=== PATIENT | female | born 1955 | race African-American/Black ===

== ENCOUNTER 2018-08-30 16:42 | Inpatient (IN) | payer MEDICARE, MEDICAID ==
[~2018-08-30] VITALS: Ht 157.5 cm; Wt 110.2 kg
[2018-08-30] MEDS ORDERED: SODIUM CHLORIDE 0.9% 500 ML IV ONE (17:25)
[2018-08-30 18:52] LABS: BASOPHILS % 0.9 % (0.0-2.0); EOSINOPHILS % 1.9 % (0.0-5.0); HEMATOCRIT. 38.8 % (36.0-48.0); HEMOGLOBIN. 13.4 g/dL (12.0-16.0); LYMPHOCYTES % 39.1 % (20.0-50.0); MEAN CORPUSCULAR HEMOGLOBIN 30.4 pg (28.0-32.0); MEAN CORPUSCULAR VOLUME 88.3 fL (81.0-99.0); MEAN PLATELET VOLUME 6.4 fl (7.4-10.4); MONOCYTES % 8.5 % (2.0-8.0); NEUTROPHILS % 49.6 % (40.0-76.0); PLATELET 463 x1000/uL (130-400); RED CELL DISTRIBUTION WIDTH 12.5 % (11.6-14.6)
[2018-08-30 18:54] LABS: CHLORIDE 87 mEq/L (98-107)
[2018-08-30 18:57] LABS: PROTHROMBIN TIME 10.5 sec (9.1-11.1)
[2018-08-30 20:16] LABS: CLARITY URINE CLOUDY (CLEAR); COLOR URINE YELLOW (YELLOW); KETONES URINE NEGATIVE (NEGATIVE); LEUKOCYTE ESTERASE URINE 3+ (NEGATIVE); NITRITE URINE POSITIVE (NEGATIVE); OCCULT BLOOD URINE TRACE (NEGATIVE); PH URINE 6.5 (4.5-8.0); PROTEIN URINE NEGATIVE (NEGATIVE); SPECIFIC GRAVITY URINE 1.011 (1.005-1.030)
[2018-08-31] MEDS ORDERED: SODIUM CHLORIDE 3% 250 ML IV SCH (02:00)
[2018-08-31] MEDS ORDERED: DOCUSATE SODIUM 250MG CAPSULE PO SCH (09:30)
[2018-08-31] MEDS ORDERED: LACTULOSE 20G/30ML UDC PO SCH (09:30)
[2018-08-31 09:36] VITALS: BP 154/77
[2018-08-31 10:54] LABS: BASOPHILS % 0.4 % (0.0-2.0); EOSINOPHILS % 0.5 % (0.0-5.0); HEMATOCRIT. 37.4 % (36.0-48.0); LYMPHOCYTES % 29.1 % (20.0-50.0); MEAN CORPUSCULAR HEMOGLOBIN 30.9 pg (28.0-32.0); MEAN CORPUSCULAR VOLUME 88.5 fL (81.0-99.0); MONOCYTES % 5.8 % (2.0-8.0); NEUTROPHILS % 64.2 % (40.0-76.0); PLATELET 459 x1000/uL (130-400); RED BLOOD CELL COUNT 4.23 mill/uL (4.2-5.4); RED CELL DISTRIBUTION WIDTH 12.7 % (11.6-14.6)
[2018-08-31] MEDS: SPIRONOLACTONE 25MG TABLET PO SCH (11:42)
[2018-08-31] MEDS ORDERED: ALD50 MT (13:00)
[2018-08-31] MEDS ORDERED: ACET-2178 MT (13:18)
[2018-08-31] MEDS ORDERED: CHOL100046 MT (13:18)
[2018-08-31] MEDS ORDERED: XALAO EACHEYE (13:18)
[2018-08-31] MEDS ORDERED: AMLO5TAB88 MT (13:18)
[2018-08-31] MEDS ORDERED: LEVE750T4 MT (13:18)
[2018-08-31] MEDS ORDERED: DOCU-138 MT (13:18)
[2018-08-31] MEDS ORDERED: BACL-141 MT (13:18)
[2018-08-31] MEDS ORDERED: TIMO1DRO2 EACHEYE (13:18)
[2018-08-31] MEDS ORDERED: BRIM5DRO6 EACHEYE (13:18)
[2018-08-31] MEDS ORDERED: SIMV40TA5 MT (13:18)
[2018-08-31] MEDS ORDERED: CLON0.1T MT (13:18)
[2018-08-31] MEDS ORDERED: IBUP-1649 PO (13:18)
[2018-08-31] MEDS ORDERED: MOM MT (13:18)
[2018-08-31] MEDS ORDERED: CLONIDINE 0.1MG TABLET PO PRN (15:15)
[2018-08-31] MEDS: LEVOFLOXACIN 500MG PREMIX 100 ML IV SCH (15:58)
[2018-08-31] MEDS ORDERED: NA PHOS,M-B/NA PHOS,DI-BA ENEMA 118ML PR NR (16:20)
[2018-08-31] MEDS ORDERED: LACTULOSE 20G/30ML UDC PO NR (16:20)
[2018-08-31] MEDS: DOCUSATE SODIUM 100MG CAPSULE PO SCH (18:18)
[2018-08-31] MEDS: BRIMONIDINE 0.2% OPHTH DROPS 5ML BOTHEYE SCH (18:19)
[2018-08-31] MEDS: LACTULOSE 20G/30ML UDC PO NR ×2 (19:30→21:04)
[2018-08-31 20:00] VITALS: BP 155/86
[2018-08-31] MEDS ORDERED: LEVETIRACETAM 500MG/5ML CUP PO SCH (21:00)
[2018-08-31] MEDS: AMLODIPINE 5MG TABLET PO SCH (21:04)
[2018-08-31] MEDS: ATORVASTATIN CALCIUM 20MG TABLET PO SCH (21:04)
[2018-08-31] MEDS: LATANOPROST 0.005% OPHTH DROPS 2.5ML BOTHEYE SCH (21:54)
[2018-09-01] VITALS: BP 162/82
[2018-09-01 04:00] VITALS: BP 152/73
[2018-09-01 07:48] LABS: BASOPHILS % 0.6 % (0.0-2.0); EOSINOPHILS % 1.6 % (0.0-5.0); HEMATOCRIT. 35.4 % (36.0-48.0); HEMOGLOBIN. 12.4 g/dL (12.0-16.0); LYMPHOCYTES % 36.6 % (20.0-50.0); MEAN CORPUSCULAR HEMOGLOBIN 30.6 pg (28.0-32.0); MEAN CORPUSCULAR VOLUME 87.6 fL (81.0-99.0); MEAN PLATELET VOLUME 6.6 fl (7.4-10.4); MONOCYTES % 7.3 % (2.0-8.0); NEUTROPHILS % 53.9 % (40.0-76.0); PLATELET 464 x1000/uL (130-400); RED BLOOD CELL COUNT 4.04 mill/uL (4.2-5.4); RED CELL DISTRIBUTION WIDTH 12.2 % (11.6-14.6)
[2018-09-01 08:00] VITALS: BP 138/75
[2018-09-01] MEDS: DOCUSATE SODIUM 100MG CAPSULE PO SCH ×2 (08:37→17:10)
[2018-09-01] MEDS: LEVETIRACETAM 250MG TABLET PO SCH ×2 (08:37→17:10)
[2018-09-01] MEDS: BRIMONIDINE 0.2% OPHTH DROPS 5ML BOTHEYE SCH ×2 (08:40→17:10)
[2018-09-01] MEDS: SPIRONOLACTONE 25MG TABLET PO SCH (08:40)
[2018-09-01 08:47] LABS: CHLORIDE 91 mEq/L (98-107)
[2018-09-01] MEDS ORDERED: AMLODIPINE 5MG TABLET PO SCH (09:00)
[2018-09-01 09:05] LABS: PHOSPHORUS 3.2 mg/dL (2.5-4.9)
[2018-09-01] MEDS ORDERED: POTASSIUM CHLORIDE 20MEQ TABLET SR PO NR (10:30)
[2018-09-01 12:00] VITALS: BP 146/71
[2018-09-01] MEDS: ENOXAPARIN 40MG/0.4ML SYR SUBCUT SCH ×2 (13:12→21:09)
[2018-09-01] MEDS: LEVOFLOXACIN 500MG PREMIX 100 ML IV SCH (14:03)
[2018-09-01 16:00] VITALS: BP 141/75
[2018-09-01 20:00] VITALS: BP 140/74
[2018-09-01] MEDS: LATANOPROST 0.005% OPHTH DROPS 2.5ML BOTHEYE SCH (21:07)
[2018-09-01] MEDS: ATORVASTATIN CALCIUM 20MG TABLET PO SCH (21:08)
[2018-09-01] MEDS: AMLODIPINE 5MG TABLET PO SCH (21:08)
[2018-09-02 00:27] VITALS: BP 130/67
[2018-09-02 04:00] VITALS: BP 138/67
[2018-09-02 06:06] LABS: CHLORIDE 90 mEq/L (98-107)
[2018-09-02 08:00] VITALS: BP 149/89
[2018-09-02] MEDS: SPIRONOLACTONE 25MG TABLET PO SCH (08:16)
[2018-09-02] MEDS: LEVETIRACETAM 250MG TABLET PO SCH (08:16)
[2018-09-02] MEDS: DOCUSATE SODIUM 100MG CAPSULE PO SCH (08:16)
[2018-09-02] MEDS: ENOXAPARIN 40MG/0.4ML SYR SUBCUT SCH (08:18)
[2018-09-02] MEDS ORDERED: SODIUM CHLORIDE 1000MG TABLET PO SCH (09:00)
[2018-09-02 12:00] VITALS: BP_SYST 135; BP_SYST 155; BP_DIAS 69; BP_DIAS 77
[2018-09-02] MEDS: BRIMONIDINE 0.2% OPHTH DROPS 5ML BOTHEYE SCH (12:17)
[2018-09-02] MEDS: LATANOPROST 0.005% OPHTH DROPS 2.5ML BOTHEYE SCH (12:17)
[2018-09-02] MEDS: LEVOFLOXACIN 500MG PREMIX 100 ML IV SCH (12:17)
[2018-09-02 16:00] VITALS: BP_SYST 145; BP_SYST 155; BP_DIAS 59; BP_DIAS 77
[2018-09-02 16:36] VITALS: BP 155/77
[2018-09-03] MEDS ORDERED: LEVOFLOXACIN 500MG TABLET PO SCH (17:00)
== END 2018-09-02 19:15 | DRG 644 ==
LOC: ER 16:42 → 7WST 19:41 → EDBEDREQTM 19:49 → EDBEDREQ 19:49 → ENRESERV 08-31 07:37
PROVIDERS: ADMIT Internal Medicine; ATTEND Internal Medicine
DX: E22.2 Syndrome of inappropriate secretion of antidiuretic hormone (principal); N39.0 Urinary tract infection, site not specified; I69.354 Hemiplegia and hemiparesis following cerebral infarction affecting left non-dominant side; D28.7 Benign neoplasm of other specified female genital organs; I10 Essential (primary) hypertension; E78.00 Pure hypercholesterolemia, unspecified; E86.0 Dehydration; G40.909 Epilepsy, unspecified, not intractable, without status epilepticus; K56.41 Fecal impaction; H40.9 Unspecified glaucoma; Z82.49 Family history of ischemic heart disease and other diseases of the circulatory system; Z86.79 Personal history of other diseases of the circulatory system; Z98.2 Presence of cerebrospinal fluid drainage device; Z79.899 Other long term (current) drug therapy; Z88.8 Allergy status to other drugs, medicaments and biological substances
CPT/HCPCS: 36415; 71045; 74018; 74176; 80048; 82533; 83605; 83735; 83880; 83930; 83935; 84100; 84443; 84484; 84550; 87077; 87186; 93005; 96360; 99285; A6261; J1650; J1956; J3490; J7040; J7050